=== PATIENT | male | born 1995 | race Caucasian/White ===

== ENCOUNTER 2018-01-28 16:13 | Emergency (ER) | payer OTHER ==
[2018-01-28] MEDS ORDERED: DIPHTH,PERTUSS(ACELL),TET 0.5 ML DISP.SYRIN IM ONE (16:19)
--- NOTE | 2018-01-28 16:20 | PDOC ---
Rapid Medical Evaluation Time Seen by Provider: 01/28/18 16:16 Medical Evaluation: Allergies Allergy/AdvReac Type Severity Reaction Status Date / Time No Known Allergies Allergy Verified 02/14/16 18:17 01/28/18 16:16 I have performed a brief in-person evaluation of this patient. The patient presents with a chief complaint of: lac Pertinent physical exam findings: avulsion laceration to left 5th toe I have ordered the following: Td, xray The patient will proceed to the ED for further evaluation. Discharge Disposition - Diagnosis Laceration - Referrals - Patient Instructions - Post Discharge Activity
[2018-01-28 16:23] VITALS: BP 131/91; PULSE 89; TEMP 97.6; BMI 17.2
[2018-01-28] MEDS ORDERED: IBUPROFEN 600 MG TABLET (FP) PO ONE ×2 (17:23→17:26)
--- NOTE | 2018-01-28 17:23 | PDOC ---
History of Present Illness - General Stated Complaint: LACERATION Time Seen by Provider: 01/28/18 16:16 History Source: Patient Exam Limitations: No Limitations - History of Present Illness Initial Comments: 01/28/18 17:43 Stepped on a glass vase causing it to break in incurring a flap laceration to the plantar aspect of left 5th toe Occurred: reports: just prior to arrival Severity: reports: mild Pain Location: reports: lower extremity Loss of Consciousness: no loss of consciousness Associated Symptoms (Fall): denies symptoms Past History - Travel Traveled outside of the country in the last 30 days: No Close contact w/someone who was outside of country & ill: No - Past Medical History Allergies/Adverse Reactions: Allergies Allergy/AdvReac Type Severity Reaction Status Date / Time No Known Allergies Allergy Verified 01/28/18 16:19 Home Medications: Ambulatory Orders NK [No Known Home Medication] 01/28/18 COPD: No - Immunization History Immunization Up to Date: Yes - Suicide/Smoking/Psychosocial Hx Smoking Status: No Smoking History: Never smoked Have you smoked in the past 12 months: No Number of Cigarettes Smoked Daily: 0 Information on smoking cessation initiated: No Hx Alcohol Use: No Drug/Substance Use Hx: No Substance Use Type: None Review of Systems - Review of Systems Able to Perform ROS?: Yes Is the patient limited Micronesian proficient: Yes Constitutional: Yes: Symptoms Reported HEENTM: No: Symptoms Reported Respiratory: No: Symptoms reported Musculoskeletal: Yes: Symptoms Reported, See HPI, Joint Pain Integumentary: Yes: Symptoms Reported, See HPI All Other Systems: Reviewed and Negative *Physical Exam - Vital Signs Last Vital Signs Temp Pulse Resp BP Pulse Ox 97.6 F 89 18 131/91 100 01/28/18 16:19 01/28/18 16:19 01/28/18 16:19 01/28/18 16:19 01/28/18 16:19 - Physical Exam General Appearance: Yes: Nourished, Appropriately Dressed, Apparent Distress, Mild Distress HEENT: positive: KERON, Normal ENT Inspection, TMs Normal, Pharynx Normal Neck: positive: Supple. negative: Tender Respiratory/Chest: positive: Lungs Clear Gastrointestinal/Abdominal: positive: Soft. negative: Tender Musculoskeletal: positive: Normal Inspection Extremity: positive: Normal Capillary Refill, Normal Inspection, Normal Range of Motion, Other (flap laceration to the plantar aspect of left fifth toe approximately 3 cm. Patient has range of motion to toe, no nail involvement.) Integumentary: positive: Normal Color Neurologic: positive: instrument designer II-XII NML intact, Fully Oriented, Alert, Normal Mood/ Affect, Normal Response, Motor Strength 5/5 Procedures - Laceration/Wound Repair Left Toe Wound Length: 2.6 to 5.0 cm Wound Explored: clean Wound's Depth, Shape: flap, stellate Irrigated w/ Saline: Yes Betadine Prep: Yes Anesthesia: 1% Lidocaine Wound Repaired With: Sutures Suture Size/Type: 5:0, nylon Number of Sutures: 12 Layer Closure: No Sterile Dressing Applied: Yes Splint Applied: Yes ED Treatment Course - Medications Given in the ED: ED Medications Discontinued Medications Generic Name Dose Route Start Last Admin Trade Name Marcella PRN Reason Stop Dose Admin Diphtheria/Tetanus/Acell Pertussis 0.5 ml 01/28/18 16:19 01/28/18 16:48 Boostrix - IM 01/28/18 16:20 0.5 ml .ONCE ONE Administration Progress Note - Progress Note Progress Note: Toe laceration, repaired *DC/Admit/Observation/Transfer Diagnosis at time of Disposition: Laceration - Discharge Dispostion Disposition: HOME Condition at time of disposition: Stable Decision to Admit order: No - Referrals - Patient Instructions Printed Discharge Instructions: DI for Laceration Repair -- Simple Additional Instructions: Rest, elevate, avoid strenuous activity or heavy lifting until sutures are removed Leave dressing on for the next 24 hours, Then may remove dressing gently and wash area with soap and water. Reapply bacitracin ointment and dressing daily for the next 5 days On day #6 keep the wound protected and cover as needed until sutures are removed allowing wound to start to dry May use Tylenol or Motrin for pain relief You have received tetanus/diphtheria/pertussis booster today Suture removal in : 10-12 Days - Post Discharge Activity Forms/Work/School Notes: Back to Work
== END 2018-01-28 17:54 | disposition home or self-care (01) ==
LOC: JERFT 16:13
PROC: 3E0234Z Introduction of Serum, Toxoid and Vaccine into Muscle, Percutaneous Approach (ICD-10-PCS; principal; 2018-01-28)
PROC: 0HQNXZZ Repair Left Foot Skin, External Approach (ICD-10-PCS; 2018-01-28)
DX: S91.115A Laceration without foreign body of left lesser toe(s) without damage to nail, initial encounter (principal); W25.XXXA Contact with sharp glass, initial encounter; Y93.89 Activity, other specified; Y92.018 Other place in single-family (private) house as the place of occurrence of the external cause; Y99.8 Other external cause status
CPT/HCPCS: 73630-TC-LT; 90715; 99282-25